=== PATIENT | male | born 1945 | race Caucasian/White ===

== ENCOUNTER → 2017-06-02 | Outpatient (CLI) | payer OTHER | LOC: BHLMT 09:30 | PROVIDERS: ATTEND Internal Medicine Interventional Cardiology | DX: R06.09 Other forms of dyspnea (principal); R60.9 Edema, unspecified; I25.10 Atherosclerotic heart disease of native coronary artery without angina pectoris; I10 Essential (primary) hypertension; E78.00 Pure hypercholesterolemia, unspecified | CPT/HCPCS: 93005-PO ==

== ENCOUNTER → 2017-06-23 | Outpatient (CLI) | payer OTHER | LOC: BHLMT 11:00 | PROVIDERS: ATTEND Internal Medicine Cardiovascular Disease | DX: R06.09 Other forms of dyspnea (principal); I25.10 Atherosclerotic heart disease of native coronary artery without angina pectoris; I10 Essential (primary) hypertension | CPT/HCPCS: 93017-PO ==